=== PATIENT | female | born 2000 | race Two or more races ===

== ENCOUNTER 2024-11-11 14:48 | Outpatient (CLI) | payer SELFPAY ==
[2024-11-11 15:17] VITALS: BP 128/87; PULSE 94
--- NOTE | 2024-11-11 15:20 | XR_ITS ---
Examination: Biophysical profile, ultrasound Date and time of exam: November 11, 2024 1631 hrs. Indications: Assess well-being Technique: Multiple transabdominal sonographic images of the pelvis abdomen obtained. Attention is directed to the breathing movement, gross body movement, amniotic fluid volume and tone. Findings: Amniotic fluid index 8.7 cm Total biophysical profile is 8 of 8. breathing movement is 2. Gross body movement is 2. tone is 2. Qualitative amniotic fluid volume is 2 Impression: Biophysical profile is 8 of 8.
== END 2024-11-11 16:40 | disposition home or self-care (01) ==
LOC: S4S1 14:50 → S4SX 14:51
PROVIDERS: Referring Provider Obstetrics & Gynecology; Visit Provider Obstetrics & Gynecology
DX: Z34.03 Encounter for supervision of normal first pregnancy, third trimester (principal); Z36.9 Encounter for antenatal screening, unspecified; Z3A.40 40 weeks gestation of pregnancy
CPT/HCPCS: 76819

== ENCOUNTER 2024-11-15 10:04 | Inpatient (IN) | payer MEDICAID, SELFPAY ==
[2024-11-15] VITALS (173 sets, daily range): BP systolic 100–138; BP diastolic 64–87; PULSE 76–132; RESP 18–19; TEMP 36.6–37.1; O2SAT 88–100; BMI 30.9
[2024-11-15] MEDS: RINGERS LACTATED 1000 ML 1,000 ML 100 ML IV ×3 (10:35→17:40)
--- NOTE | 2024-11-15 11:26 | PD.LDHP ---
Documentation for date of: 11/15/24 OB Labor/Induct. HPI History of Present Illness Chief complaint: induction of labor for post-dates : 1 Para: 0 Term pregnancies: 0 pregnancies: 0 Living children: 0 History of Abortions: Spontaneous and Elective: 0 History of Vaginal deliveries: 0 History of sections: No Date of last menstrual period: 02/04/24 RODOLFO: 11/10/24 Gestational Age (weeks): 40 Gestational Age (days): 5 Gestational age based on last menstrual period: 40 Indication for induction: post dates History of present illness: Visit done with dust mop maker. Patient presents for scheduled induction of labor. Indication: late-term gestation 40w5d. No regular/painful ctx. No LOF. No vaginal bleeding. Normal movement. History of Present Adequate Care: No Ultrasounds: abnormal US findings (Left renal pyelectasis, 9.7mm at 37 weeks) Obstetrical complications: other (late to care at 23 weeks) Labs Maternal Blood Type: O Pos Labs: Negative: RPR, Hepatitis B, Rubella Titre, HIV, Chlamydia, Gonorrhea and Group Beta Strep Review of Systems Review of Systems Narrative Review of Systems: Review of Systems Systems Reviewed: All systems reviewed, normal except as documented Constitutional Constitutional: Denies body ache(s), Denies chills, Denies fever(s) and Denies headache(s) ENT Ears, Nose, Mouth, and Throat: Denies headache(s) and Denies vertigo Cardiovascular Cardiovascular: Denies chest pain, Denies palpitations, Denies dyspnea and Denies syncope Respiratory Respiratory: Denies cough, Denies dyspnea Gastrointestinal Gastrointestinal: Denies nausea and Denies vomiting Neurologic Neurologic: Denies convulsions, Denies headache(s), Denies other visual disturbances, Denies syncope and Denies vertigo Past Medical History Family History OTHER FAMILY HX: non-contributory Surgical History SURGICAL: Negative Section OTHER SURGICAL HX: Denies Social History SOCIAL: No alcohol, illicit drug use or tobacco use Past Medical History Comments PMH COMMENT: Benign PMhx. Meds Home Medications and Allergies Home Medications ?Medication ?Instructions ?Recorded ?Confirmed ?Type vits no.130-ferrous fum tab 11/15/24 History 27 mg iron-folic acid 800 mcg tablet ( Vitamin) Allergies Allergy/AdvReac Type Severity Reaction Status Date / Time No Known Allergies Allergy Verified 11/15/24 10:14 OB Exam Physical Exam Narrative: General: well developed, well nourished, no acute distress, conversant Cardiac: normal heart rate Lungs: breathing without distress Abdomen: soft, gravid, non-tender, no rebound or guarding Extremities: no pain with palpation of calves Detailed Labor and Delivery Exam Dilation (cm): 1 Effacement (%): 80 Cervix position: mid station: -2 Presentation: Vertex Membranes: intact monitor accelerations: 15x15 monitor decelerations: None skilled nursing variability: Moderate (11-25) Contraction frequency (min): rare OB Assessment & Plan Assessment and Plan (1) Encounter for induction of labor: Status: Acute Assessment and plan: Patient is a 24yo G1 with SIUP at 40&5wk presenting for scheduled IOL for post-dates/late-term gestation. SCE: /-2. Vitals wnl, benign exam. Reassuring assessment overall. EFW by Dougie's 7lb. care with [facility], records in chart reviewed. Normal NIPT and glucose testing. PMhx/PNC significant for: Late to care at 23 weeks Left renal pyelectasis, 9.7mm at 37 weeks Rubella non-immune Plan: -Admit to L&D -Establish IV, routine labs -CEFM -Regular diet yyoc-ov-tups, then clear liquid diet in labor -Catalog Specialist/consent re: iol and -GBS status: negative -Will initiate IOL with: cytotec and cervical alston bulb (cook's alston balloon placed with 40cc NS only in the uterine balloon, well tolerated). -Anticipate -Will need renal ultrasound after delivery -Safe to proceed Trista Muñoz MD (2) Post-dates : Status: Acute (3) Insufficient antepartum care: Status: Acute (4) Pyelectasis of fetus on ultrasound: Status: Acute (5) Rubella non-immune status, antepartum: Status: Acute (2) Post-dates Qualifiers: Post-term type: 40-42 weeks gestation Qualified Code(s): O48.0 - Post-term
[2024-11-15 12:16] LABS: Amphetamine/Metham Scrn,Ur OB Negative (Negative); Benzoylecgonine Screen, Ur OB Negative (Negative); Opiate Screen,Urine OB Negative (Negative); THC Screen,Urine OB Negative (Negative)
[2024-11-15 12:24] LABS: Basophils % (Auto) 0 % (0-2.5); Eosinophils % (Auto) 0 % (0-10); Hemoglobin 13.3 g/dL (12.0-16.0); Immature Granulocytes % (Auto) 1 % (0-0); Immature Granulocytes Auto 0.06 Thou/mm3 (0.00-0.00); Lymphocytes # (Auto) 1.2 Thou/mm3 (1.0-4.8); Lymphocytes % (Auto) 13 % (10-50); Mean Corpuscular Hemoglobin 29.2 pg (25.0-35.0); Mean Corpuscular Volume 84 fL (80-100); Monocytes # (Auto) 0.4 Thou/mm3 (0.0-0.8); Monocytes % (Auto) 5 % (0-12); Neutrophils % (Auto) 81 % (37-80); Nucleated Red Blood Cell % 0 /100 WBC (0); Platelet Count 311 Thou/mm3 (140-440); RDW Standard Deviation 38.8 fL (36.4-46.3); Red Blood Count 4.55 Miln/mm3 (4.00-5.20); White Blood Count 8.7 Thou/mm3 (3.6-11.0)
[2024-11-15] MEDS: MISOPROSTOL 50 mCg TABLET PO (12:34)
[2024-11-15 13:10] LABS: Syphilis Nonreactive (Nonreactive)
[2024-11-15] MEDS: OXYTOCIN in NS 30 units 30 UNIT/500 ML BAG IV (18:28)
[2024-11-15] MEDS: RINGERS LACTATED 1000 ML 1,000 ML 999 ML IV (20:14)
[2024-11-15] MEDS: RINGERS LACTATED 1000 ML 1,000 ML 125 ML IV (22:25)
--- NOTE | 2024-11-15 23:42 | PD.LDPN ---
Documentation for date of: 11/15/24 OB Labor Progress Note Pelvic Exam Dilation (cm): 7 Effacement (%): 80 station: -2 Amniotic membrane status: Ruptured Contractions Contraction frequency: q2-4min Assessment and Plan Comments: Patient comfortable with epidural. IV pitocin at 2mu. Vitals wnl, afebrile Cat I FHRT Ctx q2-4min SCE: 7/80/-2. AROM performed with clear fluid noted. Plan to continue to titrate pitocin per protocol CEFM Continue to closely observe Safe to proceed Trista Muñoz MD
[2024-11-16] VITALS (101 sets, daily range): BP systolic 73–145; BP diastolic 46–98; PULSE 6–134; RESP 16–20; TEMP 36.8–37.3; O2SAT 74–100
[2024-11-16] MEDS: RINGERS LACTATED 1000 ML 1,000 ML 999 ML IV ×2 (01:44→06:05)
--- NOTE | 2024-11-16 02:56 | PD.LDPN ---
Documentation for date of: 11/16/24 OB Labor Progress Note Pelvic Exam Dilation (cm): 710 Effacement (%): 100 station: -1 Amniotic membrane status: Ruptured Contractions Contraction frequency: 4min Assessment and Plan Comments: I was asked to come assess Kendra's cervical exam in light of FHRT that is Cat I-II for min to mod joyce with occasional variable decels. She is feeling more pressure with contractions. Vitals wnl, afebrile Initially anterior lip/C/-1, but with three contractions' worth of pushing, the lip reduced completely to C/C/-1. Of note, patient has very prominent mons pubis that narrows the pelvis. Hard to assess sutures, but given room posteriorly in pelvis with snug fit of head against pubic bone anteriorly, presentation may be OP. During pushing efforts and with head stim, variability picks up beautifully and there are FHR accels. Some early decels. Will continue to push for another 30 min (total 1 hour) and if no progress past -1 station, will recommend section. Trista Muñoz MD
[2024-11-16] MEDS: ceFAZolin/D5W 2 GM IV 2 GM/100 ML BAG IV (03:46)
[2024-11-16] MEDS: FAMOTIDINE INJ 10 MG/ML VIAL 2 ML 20 MG IV (03:49)
[2024-11-16] MEDS: CITRIC ACID/SODIUM CITR 15 ML UDC (BICITRA) 30 ML PO (03:53)
--- NOTE | 2024-11-16 03:56 | ESPR_ITS ---
Documentation for date of: 11/16/24 OB Labor Progress Note Pelvic Exam Dilation (cm): 10 Effacement (%): 100 station: -1 Amniotic membrane status: Ruptured Contractions Contraction frequency: 4min Assessment and Plan Comments: Decision for section After 1 hour of concerted pushing efforts, there has been no further descent past -1 station and when I examined during pushing efforts, the head is solidly up against the pubic bone with no ability to descend past it. I discussed with patient (via turner and former automatic) my recommendation for PLTCS for arrest of descent. We discussed all r/b/a to include: bleeding (possible need for blood transfusion), infection (subcutaneous, deeper layers or uterine with possible need for prolonged admission or re-admission for IV antibiotics, I&D with wound packing, etc), injury to nearby structures such as bladder, bowel, ureters, blood vessels, nerves with possible need for re-operation, pain, injury to baby, hysterectomy, DVT/PE, . Answered all questions to patient's satisfaction. IV abx ppx: ancef 2g IV x1 and azithromycin 500mg IV x1 Nursing and anesthesia team aware of plan for section. Will proceed to OR when team is ready. Trista Muñoz MD
--- NOTE | 2024-11-16 05:45 | ESOP_ITS ---
Operative Note - [employer] Procedure Date of procedure: 11/16/24 Procedure Performed: Primary low transverse section Indication: Kendra is a 24yo with SIUP at 40w6d undergoing IOL for late-term gestation. She had induction initiated with alston cervical balloon and cytotec, at 4/80/-2, IV pitocin was initiated. She received an epidural. She progressed to C/C/-1 but did not have any descent past -1 station even after an hour of good pushing efforts at which point arrest of descent was diagnosed. Of note, she is only 0ww85ix tall and pubic bone is very prominent. Pre-Op diagnosis: SIUP at 40w6d undergoing IOL for late-term gestation Arrest of descent Post-Op diagnosis: SIUP at 40w6d undergoing IOL for late-term gestation Arrest of descent Anesthesia type: Epidural Procedure description: After obtaining informed consent, the patient was taken to the operating room. There was reassuring heart rate tracing prior. She had epidural in place as well as alston catheter draining blood-tinged urine (from labor process). Bilateral sequential compression devices were placed. She was then prepped and draped in the normal sterile fashion in the dorsal supine position with left lateral tilt. A timeout was performed to confirm patient name, date of , procedure and indication. The team was in agreement. Epidural anesthesia was found to be adequate using an Allis clamp. Anceph 2g IV x1 and Azithromycin 500mg IV x1 were given for prophylaxis. A Pfannenstiel skin incision was then made with the scalpel and carried through to the underlying layer of fascia. The fascia was incised in the midine and the incision was extended laterally with the Brooke scissors. The superior and inferior aspects of the fascial incision were then grasped with the Nnamdi clamps, elevated and the underlying rectus muscles were dissected off bluntly and sharply. The peritoneum was entered digitally and the rectus muscles were then in the midline. The peritoneal incision was then extended superiorly and inferiorly with good visualization of the bladder. Bladder blade was placed and the vesicouterine peritoneum was then identified, grasped with the pickups, and entered sharply with the Metzenbaum scissors. The incision was extended laterally and the bladder flap created digitally. The lower uterine segment was scored in a transverse fashion with the scalpel. The uterus was then entered bluntly and the incision was extended with traction with clear amniotic fluid noted. The 's head was elevated to the level of the incision. Fundal pressure was applied. The head was delivered atraumatically in the OA position. The anterior shoulder, posterior shoulder and corpus were delivered without difficulty. The nose and mouth were suctioned with bulb suction and cord was clamped x2 and cut. was vigorous. The infant was handed off to the awaiting nursing team. Cord blood obtained for typing. The placenta was then removed with uterine massage and cord traction. The uterus was exteriorized and cleared of all clot and debris. Denisse clamps were placed at the most inferior locations of the inferior extensions of the hysterotomy on both sides to ensure full closure. The uterine incision was then repaired with 0-vicryl suture in a running locking fashion. A second layer of O-vicryl was used to closed the hysterotomy incision in an imbricating fashion which then obtained full hemostasis. In addition to standard IV pitocin, patient received TXA 1g IV x1 with good uterine tone achieved. The posterior cul-de-sac was suctioned and the uterus returned to the abdomen. The gutters were cleared of all clot. Piece of surgicel snow was placed over the repaired hysterotomy. The peritoneum was closed using a 3-0 vicryl suture in running fashion. The rectus muscles were inspected and noted to be hemostatic. The fascia was reapproximated with 0-Vicryl suture in a running fashion. The subcutaneous tissue was then irrigated. Brandon's fascia was repaired using 3-0 vicryl suture in a running fashion. At that point GILBERTO London then sutured the skin with 4-0 monocryl suture in running subcuticular fashion. The incision was cleaned with a wet lap and dried with a dry lap. Sbdrcrdig-esyochuojtn-cgbq bandage was applied overlying the incision and activated according to patient safety tech instructions. Fundus was firm at the umbilicus. Sponge, lap and needle counts were correct x2. The procedure was without complications and the patient tolerated the procedure well. She was taken to recover further on Labor and Delivery, in stable condition. Fluids: crystalloid Fluid amount (mL): 1,100 Urine output (mL): 150 Specimen: none (placenta/cord removed, not sent to path) Estimated blood loss (ml): 800 Findings: Male infant in cephalic presentation, apgars 8/9, weight 3030g. Time of 0441. Normal appearing uterus, fallopian tubes and ovaries. Inferior extensions on both sides of hysterotomy, fully repaired. Surgicel snow placed over repaired hysterotomy. Complications: none Surgical staff Operation Date: 11/16/24 04:18 Case blueprinting machine operatorstreet contractor: Lita Eaton Diagnosis Discharge Diagnosis (1) Arrest of descent, delivered, current hospitalization: Status: Acute (2) Post-dates : Status: Acute (3) Encounter for induction of labor: Status: Acute (4) Insufficient antepartum care: Status: Acute (5) Rubella non-immune status, antepartum: Status: Acute (6) Pyelectasis of fetus on ultrasound: Status: Acute Problem List Completed Was Problem List Reviewed/Reconciled?: Yes (2) Post-dates Qualifiers: Post-term type: 40-42 weeks gestation Qualified Code(s): O48.0 - Post-term
[2024-11-16] MEDS: OXYTOCIN in NS 20 units 20 UNIT/1,000 ML BAG 125 UNIT IV ×2 (07:58→16:06)
[2024-11-16] MEDS: KETOROLAC INJ 30 MG/ML VIAL IVP ×2 (09:29→16:07)
[2024-11-16 11:36] LABS: Basophils % (Auto) 0 % (0-2.5); Eosinophils % (Auto) 0 % (0-10); Hematocrit 24.4 % (36.0-46.0); Immature Granulocytes % (Auto) 0 % (0-0); Immature Granulocytes Auto 0.05 Thou/mm3 (0.00-0.00); Lymphocytes # (Auto) 0.9 Thou/mm3 (1.0-4.8); Lymphocytes % (Auto) 5 % (10-50); Mean Corpuscular Volume 85 fL (80-100); Monocytes # (Auto) 1.1 Thou/mm3 (0.0-0.8); Monocytes % (Auto) 6 % (0-12); Neutrophils # (Auto) 16.6 Thou/mm3 (1.8-7.7); Neutrophils % (Auto) 89 % (37-80); Nucleated Red Blood Cell % 0 /100 WBC (0); Platelet Count 239 Thou/mm3 (140-440); RDW Standard Deviation 40.7 fL (36.4-46.3); Red Blood Count 2.86 Miln/mm3 (4.00-5.20); White Blood Count 18.7 Thou/mm3 (3.6-11.0)
[2024-11-16 11:39] LABS: Hemoglobin 8.3 g/dL (12.0-16.0)
--- NOTE | 2024-11-16 15:32 | PD.LDPPPRG ---
Subjective Subjective Interval history: seen [facility] patient at bedside, was starting her regular diet , declined getting up [facility] bed yet , Grover examined , dark urine , 200 over last 4 hours , endorses pain Exam Vital Signs Temp Pulse Resp BP Pulse Ox O2 Del Method 98.9 F 99 18 109/70 97 Room Air 11/16/24 15:29 11/16/24 15:29 11/16/24 15:29 11/16/24 15:29 11/16/24 15:29 11/16/24 15:28 Constitutional Constitutional: no acute distress Routine HEENT Exam Head: Present normocephalic and atraumatic Eye: Present EOMI and PERRL ENT: Present mucous membranes moist Routine Neck Exam Neck: Present supple and trachea midline Routine Respiratory Exam Respiratory: Present chest non-tender, lungs clear, normal breath sounds and no resp distress Routine Cardiovascular Exam Cardiovascular: Present RRR Routine Abdominal Exam Abdominal: Present soft and normoactive bowel sounds Routine Extremities Exam Extremities: Present full ROM Routine Skin Exam Skin: Present intact, dry and warm Routine Neurological Exam Neurological: Present alert, oriented X3 and CN II-XII intact Routine Psychiatric Exam Psychiatric: Present normal affect and normal thought process Objective Labs 11/16/24 11:11 Labs: Laboratory Results - last 24 hr 11/15/24 11/16/24 10:30 11:11 WBC 18.7 H D RBC 2.86 L Hgb 8.3 L D Hct 24.4 L D MCV 85 MCH 29.0 MCHC 34.0 RDW Std Deviation 40.7 Plt Count 239 D Neut % (Auto) 89 H Lymph % (Auto) 5 L [place] % (Auto) 6 Eos % (Auto) 0 Baso % (Auto) 0 Neut # (Auto) 16.6 H Lymph # (Auto) 0.9 L [place] # (Auto) 1.1 H Eos # (Auto) 0.0 Baso # (Auto) 0.0 Immature Gran # (Auto) 0.05 H Absolute Nucleated RBC 0.00 Immature Gran % 0 Nucleated RBC % 0 Blood Type O Positive Antibody Screen NEGATIVE Crossmatch See Detail Blood Bank Wristband ID Yes Assessment & Plan Problem List (1) Arrest of descent, delivered, current hospitalization: Status: Acute (2) Post-dates : Status: Acute (3) Encounter for induction of labor: Status: Acute (4) Insufficient antepartum care: Status: Acute (5) Rubella non-immune status, antepartum: Status: Acute (6) Pyelectasis of fetus on ultrasound: Status: Acute Assessment Comment Assessment comment: Hb dropped from 13>8 EBL 800 Urine output adequate Tachycardia+ Plan Comment Plan Comment: 2 units PRBC repeat after 4 hours of ending deborah second transfusion Time Spent With Patient Time: Total time spent is greater than 50% in coordination of care (as documented) at patient's floor/unit and/or counseling patient:
[2024-11-16 23:42] LABS: Basophils % (Auto) 0 % (0-2.5); Eosinophils % (Auto) 0 % (0-10); Hematocrit 29.5 % (36.0-46.0); Hemoglobin 10.3 g/dL (12.0-16.0); Immature Granulocytes % (Auto) 1 % (0-0); Immature Granulocytes Auto 0.09 Thou/mm3 (0.00-0.00); Lymphocytes # (Auto) 1.3 Thou/mm3 (1.0-4.8); Lymphocytes % (Auto) 8 % (10-50); Mean Corpuscular HGB Conc 34.9 g/dl (31.0-37.0); Mean Corpuscular Hemoglobin 29.4 pg (25.0-35.0); Mean Corpuscular Volume 84 fL (80-100); Monocytes # (Auto) 1.2 Thou/mm3 (0.0-0.8); Monocytes % (Auto) 7 % (0-12); Neutrophils # (Auto) 14.7 Thou/mm3 (1.8-7.7); Neutrophils % (Auto) 85 % (37-80); Nucleated Red Blood Cell % 0 /100 WBC (0); Platelet Count 200 Thou/mm3 (140-440); RDW Standard Deviation 42.5 fL (36.4-46.3); White Blood Count 17.3 Thou/mm3 (3.6-11.0)
[2024-11-17] MEDS: RINGERS LACTATED 1000 ML 1,000 ML 100 ML IV (00:13)
[2024-11-17] MEDS: ACETAMINOPHEN IVPB 1,000 MG/100 ML VIAL 250 MG IV ×2 (00:44→08:03)
[2024-11-17 03:45] VITALS: BP 114/69; PULSE 96; RESP 16; TEMP 36.7; O2SAT 96
[2024-11-17 05:16] LABS: Basophils % (Auto) 0 % (0-2.5); Eosinophils % (Auto) 0 % (0-10); Hematocrit 27.2 % (36.0-46.0); Hemoglobin 9.5 g/dL (12.0-16.0); Immature Granulocytes % (Auto) 1 % (0-0); Immature Granulocytes Auto 0.09 Thou/mm3 (0.00-0.00); Lymphocytes # (Auto) 1.8 Thou/mm3 (1.0-4.8); Lymphocytes % (Auto) 12 % (10-50); Mean Corpuscular HGB Conc 34.9 g/dl (31.0-37.0); Mean Corpuscular Hemoglobin 29.6 pg (25.0-35.0); Mean Corpuscular Volume 85 fL (80-100); Monocytes # (Auto) 0.9 Thou/mm3 (0.0-0.8); Monocytes % (Auto) 6 % (0-12); Neutrophils # (Auto) 12.2 Thou/mm3 (1.8-7.7); Neutrophils % (Auto) 81 % (37-80); Nucleated Red Blood Cell % 0 /100 WBC (0); Platelet Count 198 Thou/mm3 (140-440); RDW Standard Deviation 43.2 fL (36.4-46.3); Red Blood Count 3.21 Miln/mm3 (4.00-5.20)
--- NOTE | 2024-11-17 06:44 | PD.LDPPPRG ---
Subjective Subjective Interval history: Patient seen at the bedside doing well eating drinking fine without nausea vomiting denies any fever received 2 units of blood transfusion yesterday for symptomatic anemia Exam Vital Signs Temp Pulse Resp BP Pulse Ox O2 Del Method 98.0 F 96 16 114/69 96 Room Air 11/17/24 03:45 11/17/24 03:45 11/17/24 03:45 11/17/24 03:45 11/17/24 03:45 11/17/24 03:45 Constitutional Constitutional: no acute distress Routine HEENT Exam Head: Present normocephalic and atraumatic Eye: Present EOMI and PERRL ENT: Present mucous membranes moist Routine Neck Exam Neck: Present supple and trachea midline Routine Respiratory Exam Respiratory: Present chest non-tender, lungs clear, normal breath sounds and no resp distress Routine Cardiovascular Exam Cardiovascular: Present RRR Routine Abdominal Exam Abdominal: Present soft and normoactive bowel sounds Routine Extremities Exam Extremities: Present full ROM Routine Skin Exam Skin: Present intact, dry and warm Routine Neurological Exam Neurological: Present alert, oriented X3 and CN II-XII intact Routine Psychiatric Exam Psychiatric: Present normal affect and normal thought process Objective Labs 11/17/24 04:37 Labs: Laboratory Results - last 24 hr 11/15/24 11/16/24 11/16/24 10:30 11:11 23:34 WBC 18.7 H D 17.3 H RBC 2.86 L 3.50 L Hgb 8.3 L D 10.3 L D Hct 24.4 L D 29.5 L MCV 85 84 MCH 29.0 29.4 MCHC 34.0 34.9 RDW Std Deviation 40.7 42.5 Plt Count 239 D 200 D Neut % (Auto) 89 H 85 H Lymph % (Auto) 5 L 8 L [place] % (Auto) 6 7 Eos % (Auto) 0 0 Baso % (Auto) 0 0 Neut # (Auto) 16.6 H 14.7 H Lymph # (Auto) 0.9 L 1.3 [place] # (Auto) 1.1 H 1.2 H Eos # (Auto) 0.0 0.0 Baso # (Auto) 0.0 0.0 Immature Gran # (Auto) 0.05 H 0.09 H Absolute Nucleated RBC 0.00 0.00 Immature Gran % 0 1 H Nucleated RBC % 0 0 Blood Type O Positive Antibody Screen NEGATIVE Crossmatch See Detail Blood Bank Wristband ID Yes 11/17/24 04:37 WBC 15.0 H RBC 3.21 L Hgb 9.5 L Hct 27.2 L MCV 85 MCH 29.6 MCHC 34.9 RDW Std Deviation 43.2 Plt Count 198 Neut % (Auto) 81 H Lymph % (Auto) 12 [place] % (Auto) 6 Eos % (Auto) 0 Baso % (Auto) 0 Neut # (Auto) 12.2 H Lymph # (Auto) 1.8 [place] # (Auto) 0.9 H Eos # (Auto) 0.0 Baso # (Auto) 0.0 Immature Gran # (Auto) 0.09 H Absolute Nucleated RBC 0.00 Immature Gran % 1 H Nucleated RBC % 0 Blood Type Antibody Screen Crossmatch Blood Bank Wristband ID Assessment & Plan Problem List (1) Arrest of descent, delivered, current hospitalization: Status: Acute (2) Post-dates : Status: Acute (3) Encounter for induction of labor: Status: Acute (4) Insufficient antepartum care: Status: Acute (5) Rubella non-immune status, antepartum: Status: Acute (6) Pyelectasis of fetus on ultrasound: Status: Acute Assessment Comment Assessment comment: 24-year-old s/p , postop day 1 Postoperative anemia hemoglobin was 8 a drop from 13 Given 2 units of blood transfusion Hemoglobin trend 10.4> 9.5> pending Plan Comment Plan Comment: Will repeat the hemoglobin in another 12 hours close monitoring of vital signs Toradol was already discontinued Time Spent With Patient Time: Total time spent is greater than 50% in coordination of care (as documented) at patient's floor/unit and/or counseling patient:
[2024-11-17 08:05] VITALS: BP 131/86; PULSE 90; RESP 17; TEMP 36.8; O2SAT 98
--- NOTE | 2024-11-17 11:24 | PC.SS ---
PARK SERVICES SPECIALIST conducted bedside contact with the patient to address nursing referral indicating patient was late to care.? PARK SERVICES SPECIALIST introduced self, role and basis of referral.? Present with patient was FOB, Garrison Diez.? Patient gave permission for FOB to be present during discussion.? Patient confirmed late to care due to residing in the state of [place] at the time.? Upon relocating to [place], patient obtained OB services from [facility] with Serina Morales.? , Danish; is the patient?s first child.? delivered via .? Patient is aligned with WIC.? Patient not receiving SNAP or TANF.? Patient will be applying for SNAP.? Patient denies history of alcohol/drug abuse.? Patient denies CWS intervention.? Patient denies episodes of domestic violence.? Patient denies possessing a history of mental health, reports no current possession of depression or anxiety.? Patient plans on bottle feeding the .? Patient has access to appropriate supplies and equipment; to include a car seat.? Patient describes possessing support system consisting of FOB and family.? FOB will provide transportation upon discharge.? PARK SERVICES SPECIALIST provided the patient with information to include Parenting Network, Warm Line and Community resources.? No further intervention required at this time, social sciences professor will be available to address any further concerns.? PARK SERVICES SPECIALIST updated bedside nurse.?
[2024-11-17 12:10] VITALS: BP 136/95; PULSE 96; RESP 18; TEMP 36.8; O2SAT 98
[2024-11-17] MEDS: SIMETHICONE 80 MG CHEW PO (12:22)
[2024-11-17] MEDS: Milk Of Magnesia Susp 30 ML UDC PO (12:22)
[2024-11-17 12:39] LABS: Basophils % (Auto) 0 % (0-2.5); Eosinophils % (Auto) 0 % (0-10); Hematocrit 31.7 % (36.0-46.0); Hemoglobin 10.9 g/dL (12.0-16.0); Immature Granulocytes % (Auto) 1 % (0-0); Immature Granulocytes Auto 0.11 Thou/mm3 (0.00-0.00); Lymphocytes # (Auto) 1.9 Thou/mm3 (1.0-4.8); Lymphocytes % (Auto) 11 % (10-50); Mean Corpuscular HGB Conc 34.4 g/dl (31.0-37.0); Mean Corpuscular Hemoglobin 28.8 pg (25.0-35.0); Mean Corpuscular Volume 84 fL (80-100); Monocytes % (Auto) 6 % (0-12); Neutrophils # (Auto) 14.3 Thou/mm3 (1.8-7.7); Neutrophils % (Auto) 82 % (37-80); Nucleated Red Blood Cell % 0 /100 WBC (0); Platelet Count 237 Thou/mm3 (140-440); RDW Standard Deviation 42.5 fL (36.4-46.3); Red Blood Count 3.78 Miln/mm3 (4.00-5.20); White Blood Count 17.3 Thou/mm3 (3.6-11.0)
[2024-11-17 15:30] VITALS: BP 126/85; PULSE 88; RESP 20; TEMP 36.8; O2SAT 97
[2024-11-17] MEDS: HYDROcodone/APAP 5/325 TABLET 1 TAB PO ×2 (15:30→20:26)
[2024-11-17 20:10] VITALS: BP 126/81; PULSE 94; RESP 16; TEMP 36.8; O2SAT 99
[2024-11-18 05:35] VITALS: BP 121/82; PULSE 93; RESP 18; TEMP 36.9; O2SAT 95
[2024-11-18] MEDS: HYDROcodone/APAP 5/325 TABLET 1 TAB PO (05:55)
[2024-11-18 08:00] VITALS: BP 121/79; PULSE 97; RESP 15; TEMP 36.7; O2SAT 95
--- NOTE | 2024-11-18 09:15 | PD.LDDS ---
DS: Providers Provider Date of admission: 11/15/24 10:04 Primary care physician: Physician No Primary/Family Admitting Provider: Trista Muñoz MD Attending Provider on Admission: Kandis Arteaga MD Consults: 11/16/24 05:39 Referral Routine Comment: Attending Provider on DC: Trista Muñoz MD Discharging Provider: Trista Muñoz MD DS: Diagnosis Discharge Diagnosis (1) Arrest of descent, delivered, current hospitalization: Status: Acute (2) Postoperative anemia: Status: Acute (3) Blood transfusion during current hospitalisation: Status: Acute (4) Encounter for induction of labor: Status: Acute (5) Pyelectasis of fetus on ultrasound: Status: Acute (6) Post-dates : Status: Acute (7) Rubella non-immune status, antepartum: Status: Acute (8) Insufficient antepartum care: Status: Acute Problem List Completed Was Problem List Reviewed/Reconciled?: Yes Summary/Hosp Course Brief History: Kendra is a 24yo with [facility]UP at 40w6d undergoing IOL for late-term gestation. She had induction initiated with alston cervical balloon and cytotec, at 4/80/-2, IV pitocin was initiated. She received an epidural. She progressed to C/C/-1 but did not have any descent past -1 station even after an hour of good pushing efforts at which point arrest of descent was diagnosed. She then underwent an uncomplicated primary low transverse section. On post-op day 1 she had tachycardia and Hgb was seen to drop from 13.3 initial to 8.3, so she was transfused 2u pRBCs with resolution of tachycardia. Final Hgb 10.9. She is meeting all milestones and feels ready for discharge home. She is ambulating without lightheadedness, tolerating regular diet no n/v, spontaneously voiding without issue. She has no chest pain or shortness of breath. No fevers or chills. Pain well controlled. Vitals normal, benign exam. Hemodynamically stable with no evidence of infection. Peripartum Data Procedures: Procedures Operation Date: 11/16/24 04:18 Actual Procedure Side Surgeon p in OB Trista Muñoz MD Status at Discharge Functional status at discharge: independent ambulation Overall status at discharge: patient is back to baseline Time Spent with Patient Time attestation: Total time spent providing and/or coordinating discharge services: Exam Vital Signs Temp Pulse Resp BP Pulse Ox O2 Del Method 98.5 F 93 18 121/82 95 Room Air 11/18/24 05:35 11/18/24 05:35 11/18/24 05:35 11/18/24 05:35 11/18/24 05:35 11/18/24 05:35 Narrative Exam General: well developed, well nourished, no acute distress, conversant Cardiac: normal heart rate Lungs: breathing without distress Abdomen: soft, post-gravid, non-tender, no rebound or guarding, pfannenstiel incision covered by dry/clean/intact prineo bandage. Incision well reapproximated. No erythema, drainage or induration. Fundus firm at u-2cm. Extremities: no pain with palpation of calves, trace edema of BLE Discharge Plan Plan Patient Disposition: HOME (Self Care) Patient condition on transfer: Stable Prescriptions/Referrals Prescriptions/Med Rec: New hydrocodone-acetaminophen 5-325 mg Tablet 1 tab PO Q6H MDD 4 tablets PRN (Reason: Patient rated pain 7 to 8) 10 Days Qty: 12 0RF ibuprofen 800 mg tablet 800 mg PO Q8HR 10 Days Qty: 30 0RF polyethylene glycol 3350 17 gram powder in packet 17 g PO QDAY Qty: 14 0RF ferrous sulfate 325 mg (65 mg iron) tablet 325 mg PO QDAY Qty: 30 0RF Continued Vitamin 27 mg iron- 800 mcg tablet Discontinued acetaminophen 500 mg capsule 500 mg PO Q6H PRN (Reason: pain) Qty: 30 0RF Referrals: No Primary/Family,Physician [Primary Care Provider] - Patient/Caregiver Discharge Instructions Discharge Activity: activity as tolerated and other Other Discharge Activity Instructions:: vaginal rest and no heavy lifting more than 10 pounds for 6 weeks. no [address] while taking narcotic. keep incision clean and dry, do not submerge. Other Discharge Diet Instructions: regular diet Education Materials: Understanding Blues, After a , Nutrition While Print Language: Sudanese Activity Restrictions/Additional Instructions: follow up in clinic in 1 week for incision check, call clinic for appointment Stand Alone Forms: [employer] Award Info., Patient Portal Info Letter Discharge Order Discharge Orders: Discharge (Routine); Ordered 11/18/24 Ordered By: Trista Muñoz Planned Discharge Date 11/18/24 (6) Post-dates Qualifiers: Post-term type: 40-42 weeks gestation Qualified Code(s): O48.0 - Post-term
== END 2024-11-18 13:15 | disposition home or self-care (01) | DRG 540 ==
LOC: S4SX 11-16 04:11 → S4NX 11-16 04:30
PROVIDERS: Admitting Provider Obstetrics & Gynecology; Referring Provider Obstetrics & Gynecology; Visit Provider Student in an Organized Health Care Education/Training Program
PROC: 10D00Z1 Extraction of Products of Conception, Low, Open Approach (ICD-10-PCS; CPT 59514; principal; 2024-11-16 04:30)
DX: O48.0 Post-term pregnancy (principal); Z3A.40 40 weeks gestation of pregnancy; Z37.0 Single live birth; O35.EXX0 Maternal care for other (suspected) fetal abnormality and damage, fetal genitourinary anomalies, not applicable or unspecified; O62.1 Secondary uterine inertia; O76 Abnormality in fetal heart rate and rhythm complicating labor and delivery; O90.81 Anemia of the puerperium; D62 Acute posthemorrhagic anemia
CPT/HCPCS: 36415; 59409; 80307; 85025; 86780; 86850; 86900; 86901; 86923; 94762; J0131; J0689; J1885; J2250; J2371; J2590; J2704; J2795; J3010; J3490; J7120; P9016; A9270